=== PATIENT | female | born 2000 ===

== ENCOUNTER 2018-10-28 14:42 | Inpatient (IN) | payer OTHER ==
[~2018-10-28] VITALS: Ht 154.9 cm; Wt 60.8 kg
[2018-11-01] MEDS ORDERED: NIFEDIPINE ER30 MG PO (09:02)
[2018-11-01] MEDS ORDERED: CEFADROXIL500 MG PO (09:02)
== END 2018-11-01 10:38 | DRG 832 ==
LOC: OB/GYN 14:42 → LDR 14:42 → OB/GYN 10-30 11:17
PROVIDERS: ADMIT Obstetrics & Gynecology
PROC: 4A1HXCZ Monitoring of Products of Conception, Cardiac Rate, External Approach (ICD-10-PCS; principal; 2018-10-28)
PROC: BT43ZZZ Ultrasonography of Bilateral Kidneys (ICD-10-PCS; 2018-10-28)
PROC: BY4FZZZ Ultrasonography of Third Trimester, Single Fetus (ICD-10-PCS; 2018-10-28)
DX: O60.03 Preterm labor without delivery, third trimester (principal); O23.33 Infections of other parts of urinary tract in pregnancy, third trimester; O99.343 Other mental disorders complicating pregnancy, third trimester; F41.0 Panic disorder [episodic paroxysmal anxiety]; F43.0 Acute stress reaction; M93.89 Other specified osteochondropathies multiple sites; O26.893 Other specified pregnancy related conditions, third trimester; Z34.03 Encounter for supervision of normal first pregnancy, third trimester

== ENCOUNTER 2018-11-18 13:34 | Inpatient (IN) | payer OTHER ==
[~2018-11-18] VITALS: Ht 154.9 cm; Wt 62.6 kg
[~2018-11-18 13:34] MED LIST: CEFADROXIL500 MG PO; NIFEDIPINE ER30 MG PO
[2018-11-18] MEDS ORDERED: FOLIC ACID1 MG (15:24)
[2018-11-18] MEDS ORDERED: PRENATAL TABLE1 EAC4 (15:24)
[2018-11-20] MEDS ORDERED: OBSTETRIX DHA1 EACH PO (08:47)
== END 2018-11-20 13:06 | disposition home or self-care (01) | DRG 807 ==
LOC: LDR 13:34 → OB/GYN 21:25
PROVIDERS: ADMIT Obstetrics & Gynecology
PROC: 10E0XZZ Delivery of Products of Conception, External Approach (ICD-10-PCS; principal; 2018-11-18)
PROC: 4A1HXCZ Monitoring of Products of Conception, Cardiac Rate, External Approach (ICD-10-PCS; 2018-11-18)
PROC: 4A033R1 Measurement of Arterial Saturation, Peripheral, Percutaneous Approach (ICD-10-PCS; 2018-11-18)
PROC: 0UQGXZZ Repair Vagina, External Approach (ICD-10-PCS; 2018-11-18)
DX: O71.4 Obstetric high vaginal laceration alone (principal); Z37.0 Single live birth; Z3A.37 37 weeks gestation of pregnancy